=== PATIENT | female | born 1980 | race Caucasian/White ===

== ENCOUNTER 2017-01-01 20:49 | Emergency (ER) | payer MEDICAID ==
[~2017-01-01] VITALS: Ht 160 cm; Wt 75.5 kg
[~2017-01-01 20:49] MED LIST: CETI10CA PO; NAPH15DR OP
[2017-01-01 21:20] VITALS: Ht 160 cm; Wt 75.5 kg
[2017-01-02 01:13] LABS: ADD SCAN DIFF NO
[2017-01-02 01:16] LABS: BASOPHILS % 0.2 % (0.0-2.0); EOSINOPHILS # 0.1 10^3/ul (0.0-0.5); HEMATOCRIT 36.7 % (37.0-47.0); HEMOGLOBIN 12.3 g/dl (12.0-16.0); LYMPHOCYTES # 1.8 10^3/ul (0.8-2.9); LYMPHOCYTES % 38.5 % (15.0-51.0); MEAN CORPUSCULAR HEMOGLOBIN 29.4 pg (29.0-33.0); MEAN CORPUSCULAR HGB CONC 33.5 g/dl (32.0-37.0); MEAN CORPUSCULAR VOLUME 87.8 fl (82.0-101.0); MEAN PLATELET VOLUME 9.8 fl (7.4-10.4); MONOCYTE # 0.6 10^3/ul (0.3-0.9); MONOCYTES % 12.9 % (0.0-11.0); NEUTROPHIL # 2.1 10^3/ul (1.6-7.5); NEUTROPHILS % 45.2 % (39.0-77.0); PLATELET COUNT 311 10^3/UL (140-415); RED BLOOD COUNT 4.18 10^6/ul (4.20-5.40); RED CELL DISTRIBUTION WIDTH 13.1 % (11.5-14.5); WHITE BLOOD COUNT 4.7 10^3/ul (4.8-10.8)
[2017-01-02 01:19] LABS: ADD UMIC NO; URINE BILIRUBIN (Dip) NEGATIVE (NEGATIVE); URINE BLOOD (Dip) NEGATIVE (NEGATIVE); URINE COLOR LT. YELLOW (YELLOW); URINE GLUCOSE (Dip) NEGATIVE (NEGATIVE); URINE KETONES (Dip) NEGATIVE (NEGATIVE); URINE LEUKOCYTE ESTERASE (Dip) NEGATIVE (NEGATIVE); URINE NITRITE (Dip) NEGATIVE (NEGATIVE); URINE TOTAL PROTEIN (Dip) NEGATIVE (NEGATIVE); URINE UROBILINOGEN (Dip) 0.2 E.U./dL (0.1-1.0)
--- NOTE | 2017-01-02 01:29 | ERD ---
ER Documentation Chief Complaint Date/Time DATE: 01/02/17 TIME: 01:28 Chief Complaint MID UPPER ABD PAIN SINCE AT. +[place]. NO N/V HPI 36 year old female presents to ED with CC of intermittent epigastric pain x 2 days. Associated Sx include diarrhea. She denies N/V, constipation, hematochezia , hematemesis, dysuria, and fever. She has not taken any medications for relief. She states that pain is aggravated by eating. She has had this type of pain a few times in the past but has never seen a medical provider for it. She states she has no surgical Hx. ROS All systems reviewed and are negative except as per history of present illness. Medications Home Meds Active Scripts Omeprazole* (Omeprazole*) 20 Mg Capsule.dr, 20 MG PO BID, #20 Prov:Jane Casanova PA-C 01/02/17 Cetirizine Hcl* (Zyrtec*) 10 Mg Capsule, 10 MG PO DAILY, #20 TAB.CHEW Prov:HORACIO DEVI PA-C 07/09/16 Naphazoline Hcl/Phenir Mal (Naphcon-A Eye Drops) 15 Ml Drops, 15 ML OP BID for 7 Days, BOTTLE Prov:HORACIO DEVI PA-C 07/09/16 Allergies Allergies: Coded Allergies: No Known Allergy (Unverified , 07/09/16) PMhx/Soc Medical and Surgical Hx: pt denies Medical Hx, pt denies Surgical Hx History of Surgery: No Anesthesia Reaction: No Hx Neurological Disorder: No Hx Respiratory Disorders: No Hx Cardiac Disorders: No Hx Psychiatric Problems: No Hx Miscellaneous Medical Probl: No Hx Alcohol Use: No Hx Substance Use: No Hx Tobacco Use: No Smoking Status: Never smoker Physical Exam Vitals Physical Exam GENERAL: Non-toxic. No apparent signs of distress. HEENT: Atraumatic. Bilateral eyes are PERRL EOM intact. Normal conjunctiva, no injection. No eyelid or lower eyelid swelling noted. Nose: no nasal discharge. Throat: Oropharynx normal. Tongue pink and moist. No tonsillar swelling or tonsillar exudates. No lymphadenopathy. LUNGS: Clear to auscultation. No accessory muscle use. No wheezing, no crackles. No signs or symptoms of respiratory distress. HEART: Regular rate and rhythm. No murmurs, clicks, rubs or gallops. ABDOMEN: Soft and nondistended. Bowel sounds positive. No rebound or guarding. No gross peritoneal signs. No Baig or McBurney point tenderness. No gross masses. Mild tenderness to palpation of epigastric region. BACK: No midline tenderness, no costovertebral tenderness. NEURO: The patient moves all 4 extremities with 5/5 strength. Cranial nerves are grossly intact. Normal mental status for age. Good muscle tone. SKIN: There is no apparent rash, petechiae, erythema or swelling. Good skin turgor. Result Diagram: 01/02/17 0054 01/02/17 0054 Results 24 hrs Laboratory Tests Test 01/02/17 00:50 01/02/17 00:54 Urine Color LT. YELLOW Urine Clarity CLEAR Urine pH 5.5 Urine Specific Hoffmeister >=1.030 Urine Ketones NEGATIVE Urine Nitrite NEGATIVE Urine Bilirubin NEGATIVE Urine Urobilinogen 0.2 E.U./dL Urine Leukocyte Esterase NEGATIVE Urine Hemoglobin NEGATIVE Urine Glucose NEGATIVE% Urine Total Protein NEGATIVE White Blood Count 4.710^3/ul Red Blood Count 4.1810^6/ul Hemoglobin 12.3g/dl Hematocrit 36.7% Mean Corpuscular Volume 87.8fl Mean Corpuscular Hemoglobin 29.4pg Mean Corpuscular Hemoglobin Concent 33.5g/dl Red Cell Distribution Width 13.1% Platelet Count 11721^3/UL Mean Platelet Volume 9.8fl Neutrophils % 45.2% Lymphocytes % 38.5% Monocytes % 12.9% Eosinophils % 3.0% Basophils % 0.2% Nucleated Red Blood Cells % 0.0/100WBC Neutrophils # 2.110^3/ul Lymphocytes # 1.810^3/ul Monocytes # 0.610^3/ul Eosinophils # 0.110^3/ul Basophils # 0.010^3/ul Nucleated Red Blood Cells # 0.010^3/ul Sodium Level 138mmol/L Potassium Level 3.9mmol/L Chloride Level 106mmol/L Carbon Dioxide Level 23mmol/L Anion Gap 13 Blood Urea Nitrogen 12mg/dl Creatinine 0.56mg/dl Glucose Level 98mg/dl Calcium Level 9.1mg/dl Total Bilirubin 0.2mg/dl Direct Bilirubin 0.00mg/dl Indirect Bilirubin 0.2mg/dl Aspartate Amino Transf (AST/SGOT) 31IU/L Alanine Aminotransferase (ALT/SGPT) 39IU/L Alkaline Phosphatase 83IU/L Total Protein 7.7g/dl Albumin 4.5g/dl Globulin 3.20g/dl Albumin/Globulin Ratio 1.40 Lipase 113U/L [place] [id number] Radiology Main Line: [phone] DIAGNOSTIC IMAGING REPORT Patient: OMAR RODRIGUEZ : 1980 Age: 36 Sex: F MR #: [id number] DOS: 01/02/17 0045 Ordering MD: Jane Casanova PA-C Location: [facility] Room/Bed: PROCEDURE: ULTRASOUND LIMITED ABDOMEN CLINICAL INDICATION: 36-year-old female with abdominal pain. TECHNIQUE: Multiple sonographic of the right upper quadrant of the abdomen were obtained. The images were reviewed on a PACS workstation. COMPARISON: None. FINDINGS: The pancreas is partially visualized and is otherwise normal. The liver displays normal echogenicity. The liver measures 17.6 cm in length. No evidence of intrahepatic biliary ductal dilatation is seen. The portal and hepatic veins are unremarkable. The gallbladder demonstrates no wall thickening, sludge, nor stones. No pericholecystic fluid is seen. The common bile duct measures 5.4 mm and is not dilated. The right kidney displays normal echogenicity. The right kidney measures 11.7 cm in maximal length. No caliectasis or hydronephrosis is seen. No free fluid is seen. IMPRESSION: Unremarkable right upper quadrant abdominal ultrasound. .Tobias Petty MD, MD Date Time Electronically viewed and signed by .Tobias Petty MD, on 01/02/2017 03:03 .M/ CC: Jane Casanova PA-C Procedures/MDM Patient presented with CC of intermittent epigastric pain x 2 days, that is aggravated by eating. States she has had this type of pain before but has never seen a medical provider for it. On exam she had mild tenderness to palpation of the epigastric region with a negative baig's. I ordered basic labs and an US of the gallbladder, awaiting results prior to further workup. CBC: mild leukopenia of 4.7 (patient advised to follow-up with her PCP about this, not likely related to current complaint), no anemia, no left shift CMP: all WNLs, no severe electrolyte imbalance, normal kidney and liver function Lipase: WNL UA: no leukocyte esterase or nitrite, UTI and pyelonephritis unlikely US gallbladder (interpretation by radiologist): IMPRESSION: Unremarkable right upper quadrant abdominal ultrasound. Explained results of w/u with patient, only abnormal finding is mild leukopenia which I do not believe is related to her current complaint. Patient advised to follow-up with her PCP about this, list of labs provided. US was normal, ruling out cholecystitis. I explained that pain is likely due to ulcer vs gastritis. Discussed avoiding aggravating foods and use of a PPI. At this time I have low suspicion for cholecystitis, cholangitis, choledocholithiasis, pancreatitis, pyelonephritis, UTI, appendicitis, bowel obstruction, bowel perforation, and acute coronary syndrome. Patient is stable for discharge home and outpatient management. Advised to follow-up with PCP in 1-2 days. Strict return precautions discussed. Departure Diagnosis: Primary Impression: Abdominal pain Abdominal location: epigastric Qualified Code: R10.13 - Epigastric pain Condition: Good Jane Casanova PA-C January 02, 2017 01:29
[2017-01-02 01:41] LABS: ALBUMIN 4.5 g/dl (3.3-4.9); ALBUMIN/GLOBULIN RATIO 1.4; BILIRUBIN,INDIRECT 0.2 mg/dl (0-1.1); BILIRUBIN,TOTAL 0.2 mg/dl (0.2-1.3); CALCIUM 9.1 mg/dl (8.4-10.2); CREATININE 0.56 mg/dl (0.44-1.00); POTASSIUM 3.9 mmol/L (3.5-5.1); TOTAL PROTEIN 7.7 g/dl (6.1-8.1)
--- NOTE | 2017-01-02 03:03 | RADRPT ---
PROCEDURE: ULTRASOUND LIMITED ABDOMEN CLINICAL INDICATION: 36-year-old female with abdominal pain. TECHNIQUE: Multiple sonographic of the right upper quadrant of the abdomen were obtained. The imag es were reviewed on a PACS workstation. COMPARISON: None. FINDINGS: The pancreas is partially visualized and is otherwise normal. The liver displays normal echogenicity. The liver measures 17.6 cm in length. No evidence of intrah epatic biliary ductal dilatation is seen. The portal and hepatic veins are unremarkable. The gallbladder demonstrates no wall thickening, sludge, nor stones. No pericholecystic fluid is see n. The common bile duct measures 5.4 mm and is not dilated. The right kidney displays normal echogenicity. The right kidney measures 11.7 cm in maximal length. No caliectasis or hydronephrosis is seen. No free fluid is seen. IMPRESSION: Unremarkable right upper quadrant abdominal ultrasound. .Tobias Petty MD, MD Date Time Electronically viewed and signed by .Tobias Petty MD, on 01/02/2017 03:03 .Carmela/
[2017-01-02] MEDS ORDERED: OMEP20CA16 PO (03:22)
== END 2017-01-02 03:28 | disposition home or self-care (01) ==
LOC: FTE 20:49
DX: R10.13 Epigastric pain (principal)
CPT/HCPCS: 36415; 76705; 80053; 81003; 83690; 85025; Z7502

== ENCOUNTER 2017-09-10 16:40 | Emergency (ER) | END 2017-09-10 22:14 | disposition home or self-care (01) ==